=== PATIENT | male | born 1985 | race Asian ===

== ENCOUNTER 2017-06-15 19:46 | Emergency (ER) | payer SELFPAY ==
[2017-06-15 20:00] VITALS: PULSE 67; RESP 16; TEMP 97.9
--- NOTE | 2017-06-15 20:40 | EDPHY ---
ED Progress Note Narrative: Procedure: Laceration repair. Verbal consent was obtained from the patient. The simple, deep 1/2 cm laceration on the left scalp was anesthetized in the usual fashion using 4 mL 1 % lidocaine with epinephrine. The wound was irrigated, draped and explored to its base with a gloved finger. There were no deep structures involved. No foreign bodies were identified. The wound was repaired with #4, ever. Good hemostasis was achieved. Patient tolerated procedure well. The procedure was performed by myself.
--- NOTE | 2017-06-15 21:19 | EDPHY ---
H & P Stated Complaint: head lac-after colliding heads- denies LOC Time Seen by Provider: 06/15/17 19:57 HPI/ROS: HPI: This 29-year-old male who presents with Chief Complaint: Head injury Location: Head Quality: Injury Duration: Prior to arrival Signs and Symptoms: No LOC, no headache, no vision changes, no neck pain, no radiation, no nausea, no vomiting, no dizziness Timing: Sudden Severity: [id number] Context: Patient was playing soccer and collided with another player. The players chin hit the left parietal area of his head. He started to bleed immediately. Tetanus is up-to-date. Applied direct pressure. He has required stitches in his head at 2 other times when he was younger. Denies loss consciousness/neck pain. Denies history of concussion. Ambulatory at the scene. Modifying Factors: Direct pressure applied. Comment: ROS: Constitutional: No fever, no chills, no weight loss Eyes: No blurred vision Respiratory: No shortness of breath, no cough Cardiovascular: No chest pain Gastrointestinal: No nausea, no vomiting no diarrhea Genitourinary: No dysuria Extremities: No myalgias Neurologic: No weakness, no numbness Skin: No rashes Hematologic: No bruising, no bleeding MEDICAL/SURGICAL/SOCIAL HISTORY: Generally healthy. Denies surgical history. Employed. Enjoys playing soccer in his spare time. PHYSICAL EXAM: CONSTITUTIONAL: Pleasant adult male, awake and alert, no obvious distress HEENT: 3 cm deep linear laceration right parietal area, normocephalic, PERRL, EOMI. Wears glasses. No raccoon eyes. Tympanic membranes clear. Oropharynx clear, no exudate and moist pink mucosa. Airway patent. No lymphadenopathy. NECK: Supple, no midline tenderness, full range of motion, No meningismus. Cardiovascular: Normal S1/S2, regular rate, regular rhythm, without murmur rub or gallop. PULMONARY/CHEST: Symmetrical and nontender. Clear to auscultation bilaterally. Good air movement. No accessory muscle usage. ABDOMEN: Soft, nondistended, nontender, no rebound, no guarding, no peritoneal signs, no masses or organomegaly. No CVAT. EXTREMITIES: 2/2 pulses, no deformities, no clubbing, no cyanosis or edema. NEUROLOGICAL: no focal neuro deficits. GCS 15. SKIN: Warm and dry, no erythema. no rash. Good capillary refill. Source: Patient Exam Limitations: No limitations - Personal History Current Tetanus Diphtheria and Acellular Pertussis (TDAP): Yes - Medical/Surgical History Hx Asthma: No Hx Chronic Respiratory Disease: No Hx Diabetes: No Hx Cardiac Disease: No Hx Renal Disease: No Hx Cirrhosis: No Hx Alcoholism: No Hx HIV/AIDS: No Hx Splenectomy or Spleen Trauma: No Other PMH: denies - Social History Smoking Status: Never smoked Constitutional: Initial Vital Signs Temperature (C) 36.6 C 06/15/17 19:57 Heart Rate 67 06/15/17 19:57 Respiratory Rate 16 06/15/17 19:57 Blood Pressure 127/91 H 06/15/17 19:57 O2 Sat (%) 99 06/15/17 19:57 O2 Delivery Mode Room Air Allergies/Adverse Reactions: No Known Allergies Allergy (Unverified 06/15/17 19:57) Home Medications: Medication Instructions Recorded NK [No Known Home Meds] 06/15/17 Medical Decision Making ED Course/Re-evaluation: No LOC/neurological symptoms to suggest concussion. Laceration repaired with 4 ever. Advised supportive care. Written and verbal wound care instructions provided. Differential Diagnosis: Head injury including but not limited to concussion, skull fracture, intraparenchymal contusion, subarachnoid, subdural and epidural hematoma. Departure - Departure Disposition: Home, Routine, Self-Care Clinical Impression: Scalp laceration Qualifiers: Encounter type: initial encounter Qualified Code(s): S01.01XA - Laceration without foreign body of scalp, initial encounter Condition: Good Instructions: Head Injury (ED), Staple Care (ED) Additional Instructions: Take ibuprofen 600-800 mg every 6-8 hours with food as needed for pain, headache. Please keep the laceration and ever dry for the next 48 hours. After 48 hours, you may wash the area with mild soap and water; and pat dry. Please return to the emergency room to have ever removed in 7 days. Please monitor for signs and symptoms of a concussion. Referrals: [facility],. [Clinic] - As per Instructions
[2017-06-15 21:25] VITALS: BP 118/79; O2SAT 96
== END 2017-06-15 21:25 | disposition home or self-care (01) ==
PROC: 0HQ0XZZ Repair Scalp Skin, External Approach (ICD-10-PCS; principal; 2017-06-15)
DX: S01.01XA Laceration without foreign body of scalp, initial encounter (principal); W51.XXXA Accidental striking against or bumped into by another person, initial encounter; Y99.8 Other external cause status; Y93.66 Activity, soccer